=== PATIENT | female | born 1980 | race African-American/Black ===

== ENCOUNTER 2016-05-08 17:19 | Emergency (ER) | payer SELFPAY ==
[2016-05-08 18:11] LABS: BASO % 0.2 % (0-2); HCT-HEMATOCRIT 30.3 % (34.0-49.0); HGB-HEMOGLOBIN 10.3 gm/dl (12.0-15.5); LYMPH % 33.5 % (20-45); LYMPH ABSOLUTE COUNT 1.6 tho/cmm (0.8-4.5); MCH (MEAN CORPUSCULAR HGB) 28.5 pg (28.0-32.0); MCV (MEAN CELL VOLUME) 83.9 fl (82.0-96.0); MEAN PLATELET VOLUME 10.6 cmc (9.4-12.4); MONO % 19.4 % (0-12); MONOCYTE ABSOLUTE COUNT 0.9 tho/cmm (0.0-1.2); NEUTROPHIL ABSOLUTE COUNT 2.2 tho/cmm (1.6-8.0); NEUTROPHIL-AUTOMATED 2.2 tho/cmm (1.6-8.0); NEUTROPHILS % 46.9 % (40-80); PLATELET COUNT 260 tho/cmm (150-450); RED BLOOD COUNT 3.61 mil/cmm (4.00-5.20); RED CELL DISTRIBUTION WIDTH 16.4 % (12.4-16.4); WHITE BLOOD COUNT 4.7 tho/cmm (4.0-10.0)
[2016-05-08 18:29] LABS: ANION GAP 9 mmol/L (0-20); BLOOD UREA NITROGEN 9 mg/dl (6-24); CARBON DIOXIDE-VENOUS 26 mmol/L (22-32); CHLORIDE 106 mmol/l (96-110); CREATININE 0.69 mg/dl (0.50-1.10); GLUCOSE 88 mg/dL (70-110); POTASSIUM 3.9 mmol/L (3.7-5.1); SODIUM 137 mmol/L (135-145); eGFR VALUE FOR BLACK >90 mL/Min
[2016-05-08 19:33] LABS: URINE BILIRUBIN NEGATIVE (NEG); URINE BLOOD LARGE (NEG); URINE GLUCOSE (UA) NEGATIVE (NEG); URINE KETONE SMALL (NEG); URINE LEUKOCYTE ESTERASE POSITIVE (NEG); URINE NITRITE NEGATIVE (NEG); URINE PROTEIN SMALL (NEG)
[2016-05-08 19:46] LABS: URINE APPEARANCE SL CLOUDY; URINE COLOR YELLOW
[2016-05-08 19:51] LABS: URINE EPITHELIAL CELLS 0-5 /[HPF] (0-10)
[2016-09-06] MEDS ORDERED: MICROGESTIN 211 EAC1 PO (15:03)
[2016-09-06] MEDS ORDERED: TYLENOL325 M2 PO (15:03)
[2016-09-06] MEDS ORDERED: [UNRECOGNIZED DRUG - OTHER] (15:05)
[2016-09-08] MEDS ORDERED: NORCO 5-325 TA1 EACH PO (06:28)
[2016-09-08] MEDS ORDERED: AUGMENTIN 875-1 EAC2 PO (06:29)
== END 2016-05-08 20:56 ==
LOC: EDMED 17:19
PROVIDERS: Emergency Medicine
DX: O20.0 Threatened abortion (principal); Z3A.08 8 weeks gestation of pregnancy; Z88.2 Allergy status to sulfonamides